=== PATIENT | male | born 1970 | race African-American/Black ===

== ENCOUNTER 2017-12-26 20:22 | Emergency (ER) | payer MEDICAID ==
[~2017-12-26] VITALS: Ht 182.9 cm; Wt 104.3 kg
[2017-12-26] MEDS ORDERED: PROVENTIL HFA6.7 G1 IH (20:44)
[2017-12-26] MEDS ORDERED: NORCO 10-325 T1 EACH ORAL (20:44)
[2017-12-26] MEDS ORDERED: ALBUTEROL2.5 MG/3 M INH (20:44)
[2017-12-26 20:46] VITALS: BP 127/80
[2017-12-26] MEDS ORDERED: CLEOCIN150 MG ORAL (20:58)
[2017-12-26] MEDS ORDERED: IBUPROFEN800 MG ORAL (20:58)
[2017-12-26] MEDS ORDERED: Norco 5mg/325mg tab ORAL ONE (21:00)
--- NOTE | 2017-12-26 21:14 | Emergency Room Report ---
History of Present Illness General Chief Complaint: Toothache Source: Patient Present Illness HPI 47-year-old male with 3 weeks of left lower tooth pain. Sometimes associated with swelling of cheek. Denies fever chills Has not seen dentist Allergies: Coded Allergies: No Known Allergies (Unverified , 12/26/17) Patient History Past Medical History: none Past Surgical History: none Pertinent Family History: none Social History: Denies: smoking, alcohol use, drug use Immunizations: UTD Reviewed Nursing Documentation: PMH: Agreed; PSxH: Agreed Nursing Documentation-PMH Past Medical History: No History, Except For Hx Asthma: Yes Review of Systems All Other Systems: negative except mentioned in HPI Physical Exam Vital Signs Date Time Temp Pulse Resp B/P (MAP) Pulse Ox O2 Delivery O2 Flow Rate FiO2 12/26/17 20:36 97.6 76 16 127/80 96 Room Air 97.5 Sp02 EP Interpretation: reviewed, normal General Appearance: normal inspection, well appearing, no apparent distress, alert, GCS 15, non-toxic Head: normocephalic, atraumatic Eyes: bilateral eye PERRL, bilateral eye EOMI ENT: normal ENT inspection, hearing grossly normal, normal pharynx, no angioedema, normal voice, TMs + canals normal, uvula midline, moist mucus membranes, other - Left lower posterior molar; fillings noted. There is a periapical abscess to outer aspect of gum line that is very ttp. No ttp to inner cheek, jaw Neck: normal inspection, full range of motion, supple, thyroid normal, no meningismus, no bony tend Respiratory: normal inspection, lungs clear, normal breath sounds, no rhonchi, no respiratory distress, no retraction, no accessory muscle use, no wheezing, speaking full sentences Cardiovascular #1: regular rate, rhythm, no edema, no JVD, normal capillary refill Gastrointestinal: normal inspection, normal bowel sounds, non tender, soft, no mass, no peritonitis, non-distended, no guarding, no hernia, no pulsatile mass Genitourinary: no CVA tenderness Musculoskeletal: normal inspection, back normal, normal range of motion, no calf tenderness, pelvis stable, Grant's Sign negative Neurologic: normal inspection, alert, oriented x3, responsive, manual arts therapy teacher III-XII nml as tested, motor strength/tone normal, cerebellar normal, normal gait, speech normal Psychiatric: normal inspection, judgement/insight normal, mood/affect normal, no suicidal/homicidal ideation, no delusions Skin: normal inspection, normal color, no rash Lymphatic: normal inspection, no adenopathy Medical Decision Making Diagnostic Impression: Primary Impression: Toothache Additional Impression: Periapical abscess ER Course 47-year-old male with left posterior lower molar periapical abscess Vital signs stable Rx Clinda Dentist followup ER course: Patient has remained stable during ED stay. Disposition: Patient is to be discharged to home. Prescriptions given are clinda, motrin Patient is instructed to follow up with their dentist after completing abx Strict return precautions discussed with patient such as fever, chills, worsening/severe pain, nausea, vomiting, which may indicate severe illness. Patient verbalizes understanding and agrees with plan. Please note that this Emergency Department Report was dictated using [employer] parker technology software, occasionally this can lead to erroneous entry secondary to interpretation by the dictation equipment Last Vital Signs Date Time Temp Pulse Resp B/P (MAP) Pulse Ox O2 Delivery O2 Flow Rate FiO2 12/26/17 20:46 97.5 66 16 127/80 96 Room Air 97.5 Status: improved Disposition: HOME, SELF-CARE Condition: Improved Scripts Ibuprofen* (MOTRIN*) 800 Mg Tablet 800 MG ORAL THREE TIMES A DAY for pain for 7 Days, #30 TAB 0 Refills Prov: ANYA CARLSON M.D. 12/26/17 Clindamycin HCl (Clindamycin HCl) 300 Mg Capsule 150 MG ORAL Q6H for 7 Days, #28 CAP Prov: ANYA CARLSON M.D. 12/26/17 Patient Instructions: Dental Pain, Dental Abscess, [id number] Additional Instructions: - Take ALL antibiotics - Make appt tomorrow with dentist for next week for when after you finished your antibiotics - Take motrin every 8 hours with food for toothache/infection ANYA CARLSON M.D. Dec 26, 2017 21:14
[2017-12-26 21:20] VITALS: BP 127/80
== END 2017-12-26 21:20 | disposition home or self-care (01) ==
LOC: EMR 20:55
DX: K08.89 Other specified disorders of teeth and supporting structures (principal); J45.909 Unspecified asthma, uncomplicated; K04.7 Periapical abscess without sinus
CPT/HCPCS: 99284

== ENCOUNTER 2018-04-16 21:10 | Emergency (ER) | payer MEDICAID ==
[~2018-04-16 21:10] MED LIST: ALBUTEROL2.5 MG/3 M INH; CLEOCIN150 MG ORAL; IBUPROFEN800 MG ORAL; NORCO 10-325 T1 EACH ORAL; PROVENTIL HFA6.7 G1 IH
--- NOTE | 2018-04-17 01:40 | Emergency Room Report ---
History of Present Illness General Chief Complaint: To Be Triaged Present Illness Allergies: Coded Allergies: No Known Allergies (Unverified , 12/26/17) Nursing Documentation-PMH Hx Asthma: Yes Medical Decision Making Status: other Disposition: LEFT W/OUT BEING SEEN Condition: Unknown Referrals: [facility],REFERRING (PCP) Doc Almanza DO Apr 17, 2018 01:40
== END 2018-04-16 21:35 | disposition left against medical advice (07) ==
LOC: EMR 21:35
DX: M77.9 Enthesopathy, unspecified (principal); Z53.21 Procedure and treatment not carried out due to patient leaving prior to being seen by health care provider
CPT/HCPCS: 99281

== ENCOUNTER 2018-07-29 18:13 | Emergency (ER) | payer MEDICAID ==
[~2018-07-29] VITALS: Ht 182.9 cm; Wt 93.9 kg
[2018-07-29] MEDS ORDERED: IBUPROFEN600 MG ORAL (19:54)
--- NOTE | 2018-07-29 19:54 | Emergency Room Report ---
History of Present Illness General Chief Complaint: General Complaint Source: Patient Present Illness HPI 48-year-old male patient presents ER complaining left knee pain and requesting CT of abdomen. Patient reports that he was seen at [facility] 3 days ago and had an x-ray of his knee performed at that time, states was negative, states he was discharged with [place] and no splint or crutches, states she still has a popping sensation. Reports has not followed up with primary care provider to get an MRI done. Also requesting a [address] scan of liver to evaluate a mass in his liver. Reports he had a CT scan done at [facility] and was told he had a 3.1 cm mass need further imaging. and she was diagnosed with colitis and discharged with antibiotics at this time. Reports symptoms of improved since that time. Denies abdominal pain. Denies fever, chest pain, shortness breath. Allergies: Coded Allergies: No Known Allergies (Unverified , 12/26/17) Patient History Past Medical History: see triage record Reviewed Nursing Documentation: PMH: Agreed; PSxH: Agreed Nursing Documentation-PMH Past Medical History: No History, Except For Hx Cardiac Problems: No Hx Hypertension: No Hx Pacemaker: No Hx Asthma: No Hx COPD: No Hx Diabetes: No Hx Cancer: No Hx Gastrointestinal Problems: Yes - liver problem, colitis Hx Dialysis: No History Of Psychiatric Problem: Yes - anixety, depression, Bipolar disorder Hx Neurological Problems: No Hx Cerebrovascular Accident: No Hx Seizures: No Review of Systems All Other Systems: negative except mentioned in HPI Physical Exam Vital Signs Date Time Temp Pulse Resp B/P (MAP) Pulse Ox O2 Delivery O2 Flow Rate FiO2 07/29/18 18:40 99.3 89 16 104/61 96 Room Air 99.3 Sp02 EP Interpretation: reviewed, normal General Appearance: well appearing, no apparent distress, alert, GCS 15, non- toxic Head: normocephalic, atraumatic Eyes: bilateral eye normal inspection, bilateral eye PERRL ENT: hearing grossly normal, normal pharynx, no angioedema, normal voice, uvula midline, moist mucus membranes Neck: full range of motion Respiratory: lungs clear, normal breath sounds, no rhonchi, no respiratory distress, no accessory muscle use, no wheezing, speaking full sentences Cardiovascular #1: regular rate, rhythm, no edema Cardiovascular #2: 2+ radial (R), 2+ radial (L) Gastrointestinal: non tender, soft, no mass, non-distended, no guarding, no rebound Musculoskeletal: back normal, digits/nails normal, gait/station normal, normal range of motion, other - NVI, no laxity with varus or valgus stress, tender - left knee Neurologic: alert, oriented x3, responsive, motor strength/tone normal, sensory intact Psychiatric: mood/affect normal Skin: no rash Medical Decision Making PA Attestation Dr. Nayak is my supervising Physician whom patient management has been discussed with. Diagnostic Impression: Primary Impression: Knee pain ER Course Pt. presents to the ED c/o right knee pain and requesting imaging of liver. Ddx considered but are not limited to fracture, sprain, strain, contusion, dislocation. No erythema, no warmth to touch, no fever, nontoxic appearing, low suspicion for septic joint. Soft compartments, no pulselessness, no pallor, no paresthesias, low suspicion for compartment syndrome at this time. Vital signs: are WNL, pt. is afebrile Ordered X-ray and pain medication. ER COURSE patient requesting sandwich. No abdominal tenderness to palpation. Patient declines abdominal pain. Advised patient follow with primary care provider for outpatient referral for further imaging scan. Informed patient and does not need to be done emergently , needs outpatient referral for specified type of scan requested. Provided with pain medication. patient has history of recent x-ray, states was negative. Denies injury or trauma since initial x-ray, does not require repeat imaging at this time. Patient likely has meniscal or ligamentous injury requiring MRI imaging. advised patient to follow-up with primary care provider to discuss referral for outpatient imaging. LOLITA wrap was applied to the left knee and was checked afterwards by me showing good alignment and support with distal neurovascular functioning intact. Patient declined crutches. Take Tylenol or ibuprofen for pain symptoms. Patient able to ambulate independently without difficulty. Patient instructed on RICE method: rest, ice, compression, elevation. Patient instructed on rest, ice and heat. Patient instructed to be WBAT Contact information for orthopedic urgent care provided, follow-up with urgent care if unable to followup with primary care provider and get referral to podiatrist orthopedic. Followup with primary care provider. Discuss referral to ortho/pain management/ PT as needed. Discuss further imaging with MRI/CT as needed. ER precautions given. DISCHARGE: -Rx provided for Ibuprofen for pain symptoms. At this time pt. is stable for d/c to home. Patient is resting comfortably, in no acute distress, nontoxic appearing, talking without difficulty. Will provide printed patient care instructions, and any necessary prescriptions. Patient instructed to follow with primary care provider in 3 - 5 days and to request further follow-up as needed. Care plan and follow up instructions have been discussed with the patient prior to discharge. Take medications as directed. Patient questions asked and answered. Patient reports understanding and agreement to treatment plan. ER precautions given, patient instructed to return to ER immediately for any new or worsening of symptoms. - Please note that this Emergency Department Report was dictated using [employer] chemical cleaning technology software, occasionally this can lead to erroneous entry secondary to interpretation by the dictation equipment. Last Vital Signs Date Time Temp Pulse Resp B/P (MAP) Pulse Ox O2 Delivery O2 Flow Rate FiO2 07/29/18 18:40 99.3 89 16 104/61 96 Room Air 99.3 Disposition: HOME, SELF-CARE Condition: Stable Scripts Ibuprofen* (MOTRIN*) 600 Mg Tablet 600 MG ORAL Q8H PRN for For Pain, #30 TAB 0 Refills Prov: Sony Casas 07/29/18 Patient Instructions: Knee Pain, [id number] Additional Instructions: Patient instructed to follow up with primary care provider. Discuss referral for liver scan as previously instructed. Discuss referral for MRI of knee. Discuss further referral to orthopedics/physical therapy/pain management as needed. If unable to followup with PCP, followup with orthopedic urgent care in 5-7 days , call to schedule appointment. Patient instructed on RICE method: rest, ice, compression, elevation. Patient instructed to WBAT. Take medications as directed. Patient questions asked and answered. ER precautions given, patient instructed to return to ER immediately for any new or worsening of symptoms. [facility] [address] [place], [address] [email or web address] Sony Casas Jul 29, 2018 19:54
[2018-07-29 21:51] VITALS: BP 104/61
[2018-07-29 21:53] VITALS: BP 104/61
== END 2018-07-29 21:30 | disposition home or self-care (01) ==
LOC: EMR 19:30
DX: M25.562 Pain in left knee (principal); F41.9 Anxiety disorder, unspecified; F31.9 Bipolar disorder, unspecified
CPT/HCPCS: 99283

== ENCOUNTER 2020-06-08 14:49 | Emergency (ER) | payer MEDICAID ==
[~2020-06-08] VITALS: Ht 182.9 cm; Wt 113.4 kg
[~2020-06-08 14:49] MED LIST changes: +IBUPROFEN600 MG ORAL
--- NOTE | 2020-06-08 15:10 | NUR ---
ED Nurse Note: Pt walked in c/o chronic left foot and bilateral knee pain that became worse since yesterday. Repsirations even and unlabored on room air. Vitals stable as documented. A+Ox4, speaking in full sentences.
[2020-06-08 15:22] VITALS: BP 119/75
[2020-06-08] MEDS ORDERED: NAPROXEN500 M2 ORAL (15:28)
[2020-06-08 15:35] VITALS: BP 125/86
--- NOTE | 2020-06-08 15:35 | NUR ---
ED Nurse Note: Pt cleared by health care Provider for discharge. DC instructions/prescription were given and explained to pt and verbalized understanding of teachings. All medical deviecs such as ID band removed. Pt is A+O x4, ambulatory and left with all personal belongings.
--- NOTE | 2020-06-08 15:38 | Emergency Room Report ---
History of Present Illness General Chief Complaint: Pain Present Illness HPI Disclaimer: Please note that this report is being documented using [employer] technology. This can lead to erroneous entry secondary to incorrect interpretation by the dictating instrument. HPI: 50-year-old male history of arthritis presented for bilateral knee and left foot pain. He has a history of chronic left foot injury in addition to arthritis of both knees. 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 Worse with prolonged use improved with rest. He denies any specific injuries. He denies any fevers, nausea, vomiting. Ambulatory on arrival. PMH: Arthritis PSH: Reviewed Social Hx: Denies smoking drinking or illicit drug use Allergies: Coded Allergies: No Known Allergies (Unverified , 12/26/17) COVID-19 Screening Contact w/high risk pt: No Experienced COVID-19 symptoms?: No COVID-19 Testing performed ANIMAL TECHNICIAN: No Patient History Reviewed Nursing Documentation: PMH: Agreed; PSxH: Agreed Nursing Documentation-PMH Hx Cardiac Problems: No Hx Hypertension: No Hx Pacemaker: No Hx Asthma: Yes Hx COPD: No Hx Diabetes: No Hx Cancer: No Hx Gastrointestinal Problems: Yes - liver problem, colitis Hx Dialysis: No Hx Neurological Problems: No Hx Cerebrovascular Accident: No Hx Seizures: No Review of Systems All Other Systems: negative except mentioned in HPI Physical Exam Vital Signs Date Time Temp Pulse Resp B/P (MAP) Pulse Ox O2 Delivery O2 Flow Rate FiO2 06/08/20 14:56 98.8 92 17 115/73 (87) 98 06/08/20 15:22 Room Air Sp02 EP Interpretation: reviewed, normal General Appearance: well appearing, no apparent distress Head: normocephalic, atraumatic Eyes: bilateral eye PERRL, bilateral eye EOMI ENT: hearing grossly normal, moist mucus membranes Neck: full range of motion, supple Respiratory: lungs clear, normal breath sounds, no rhonchi, no respiratory distress, no retraction, no wheezing Cardiovascular #1: normal peripheral pulses, regular rate, rhythm, no murmur Gastrointestinal: non tender, soft, non-distended, no guarding Musculoskeletal: other - Bilateral knees nontender to palpation with full range of motion and a normal gait. Left foot nontender to palpation, 2+ pulses throughout, sensation intact, no deformities noted. Neurologic: alert, oriented x3, no focal defects Skin: normal color, warm/dry Medical Decision Making Diagnostic Impression: Primary Impression: Bilateral knee pain Additional Impression: Foot pain, left ER Course Patient presents with arthralgias in the knees and left foot. He denies any specific trauma. He has a history of arthritis, states he has been working over the past couple of days on his feet all day. At this time I have low suspicion for any acute fracture, dislocation or infectious process. Will start patient on naproxen twice daily as needed for pain and instructed to rest and ice the sore areas as needed. Stable for discharge with return precautions. Last Vital Signs Date Time Temp Pulse Resp B/P (MAP) Pulse Ox O2 Delivery O2 Flow Rate FiO2 06/08/20 15:22 98.5 75 18 119/75 97 Room Air Disposition: HOME, SELF-CARE Condition: Stable Scripts Naproxen* (NAPROXEN*) 500 Mg Tablet 500 MG ORAL TWICE A WEEK PRN for For Pain, #60 TAB 0 Refills Prov: Deqaun Llanes M.D. 06/08/20 Patient Instructions: Arthritis, [id number] Additional Instructions: Patient is instructed to follow-up with her primary care doctor, primary care clinic or county clinic in 1 to 2 days. Patient instructed to return for any worsening symptoms or concerns. Dequan Llanes M.D. Jun 08, 2020 15:38
== END 2020-06-08 15:35 | disposition home or self-care (01) ==
LOC: EMR 15:20
DX: M25.562 Pain in left knee (principal); M25.561 Pain in right knee; M79.672 Pain in left foot; J45.909 Unspecified asthma, uncomplicated; Z79.51 Long term (current) use of inhaled steroids
CPT/HCPCS: 99281